=== PATIENT | female | born 1925 | race Caucasian/White ===

== ENCOUNTER 2016-11-18 23:20 | Inpatient (IN) | payer MEDICARE, OTHER ==
--- NOTE | ~2016-11-18 | CN ---
Consultation Report [facility] [address] [place]. [address] NAME: JYOTI QUICK : [birth year] STATUS : ADM IN [facility]#: [id number] AGE: 89 ADM/REG DATE : 11/18/16 MR#: [id number] REPORT SERV DATE: 11/20/16 DICTATED BY: PEPE LI DATE: 11/20/16 REPORT STATUS : Draft TRANSCRIBED BY: HENOK DATE: 11/20/16 DATE OF CONSULTATION: REASON FOR CONSULTATION: Jyoti Quick is an 89-year-old female, who is referred for followup of atrial fibrillation and hypertension. CVD PHYSICIAN: New to our group, Dr. Li. HISTORY OF PRESENT ILLNESS: Mrs. Jyoti Quick was transferred from [place] with obtundation. She is undergoing neurological evaluation, and working diagnosis is now UTI with sepsis. She is scheduled for lumbar puncture today for continuing evaluation of encephalopathy by Neurology. The patient is non-responsive, so review of systems and further history cannot be obtained. PAST MEDICAL HISTORY: Hypertension is the only listed disease. SOCIAL HISTORY: She is a group home resident. No further history is obtainable. FAMILY HISTORY: Unknown. PHYSICAL EXAMINATION: GENERAL: She currently is non-responsive. She is lying flat in bed with normal respiratory effort. CARDIAC: No significant murmur, rub, or gallops are heard. ABDOMEN: Soft. Bowel sounds are present. EXTREMITIES: Warm without edema. She has no petechiae. LABORATORY EVALUATION: Echocardiogram shows normal ejection fraction with mild LVH secondary to hypertension and no significant valvular heart disease. Troponin was mildly positive at 2.3. EKG shows atrial flutter. ASSESSMENT: At this time, she is n.p.o. and atrial fibrillation rate is out of control, on IV Cardizem which I will continue. I will defer decision for anticoagulation to Neurology. At the present time, not a candidate for intervention with a positive troponin, but we will follow clinically. ELFEGO/HENOK Pepe Li M.D. / [id number] Consultation Report [facility] [address] [place]. [address] NAME: JYOTI QUICK : [birth year] STATUS : ADM IN PAT#: [id number] AGE: 89 ADM/REG DATE : 11/18/16 MR#: [id number] REPORT SERV DATE: 11/20/16 DICTATED BY: PEPE LI DATE: 11/20/16 REPORT STATUS : Draft TRANSCRIBED BY: HENOK DATE: 11/20/16 CC: MD Jose Cowart Lisa
--- NOTE | ~2016-11-18 | CN ---
Consultation Report [facility] [address] [place]. [address] NAME: JYOTI QUICK : [birth year] STATUS : ADM IN PAT#: [id number] AGE: 89 ADM/REG DATE : 11/18/16 MR#: [id number] REPORT SERV DATE: 11/19/16 DICTATED BY: LAURIE ROSE DATE: 11/19/16 REPORT STATUS : Draft TRANSCRIBED BY: MODL DATE: 11/19/16 URGENT NEUROLOGICAL CONSULTATION DATE OF CONSULTATION: 11/19/2016 HISTORY OF PRESENT ILLNESS: This is an 89-year-old, white female, resident of the correction in [place] who was transferred to this facility from [facility] as per request of patient's family. The patient apparently had progressive decline in her mental status and generalized malaise and fever. The patient's son who visited the patient last Friday stating that he was able to communicate with her although she would not be very verbal. She recognized him and remember his name. The patient was able to interact with her son at that time, however, his son received a phone call from correction and was informed that the patient was getting unresponsive. She was taken to [facility]. At that time, she was noted to have a fever of 103. On admission to [facility], the patient's WBC count was 24,000, her hemoglobin was 16.6, hematocrit 52.1. Her blood sugar on arrival was 600. BUN was 53, creatinine 1.9. Her urinalysis showed 37 WBC, lactate was 2.5. The patient was treated with 2 g of Rocephin intravenously after transferred to this hospital. She was hydrated with normal saline, and CT scan of the brain was done. 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 The MRI of the brain which was obtained today showed findings compatible with multiple areas bilateral hemispheres of small infarcts, suggestive of shower of emboli. In addition, chronic extensive small-vessel ischemic changes and cortical atrophy were noted. PAST MEDICAL HISTORY: Significant history of a stroke approximately 10 years ago. The patient does have history of atrial flutter, however, has not been treated with anticoagulation secondary to increased risk of falling. In addition, the patient has history of dementia, she has been diagnosed with in the past few years. The patient has been residing in correction for the past two years. The patient's son who works in correction in the maintenance department was able to visit her frequently and had noted a definite change in her mental status starting last Friday. MEDICATIONS: The patient's current medications included diltiazem 180 mg p.o. b.i.d., glimepiride 4 mg p.o. daily, loratadine 10 mg daily, mirtazapine 30 mg at bedtime, Rocephin 1 g IV q.24 hours, citalopram 40 mg p.o. daily, pantoprazole 40 mg p.o. before breakfast, and multivitamin. ALLERGIES: NO KNOWN ALLERGIES. FAMILY HISTORY: Noncontributory. SOCIAL HISTORY: The patient is . Her recently was also placed in a correction for multiples strokes, however, as per patient's sons present at the patient's bedside, Consultation Report [address] [address] NAME: JYOTI QUICK : [birth year] STATUS : ADM IN [facility]#: [id number] AGE: 89 ADM/REG DATE : 11/18/16 MR#: [id number] REPORT SERV DATE: 11/19/16 DICTATED BY: LAURIE ROSE DATE: 11/19/16 REPORT STATUS : Draft TRANSCRIBED BY: HENOK DATE: 11/19/16 their father (patient's ) recovered although not able to speak very well, was able to function. PHYSICAL EXAMINATION: GENERAL: The patient is somnolent, aroused with difficulty when called by her son, responded to painful stimuli by moving all three extremities except for the left arm which appeared to have increased tone. VITAL SIGNS: Showed blood pressure of 139/100, pulse was 136, respirations 24, oxygen saturation 99, temperature was 98.9. HEAD AND NECK EXAMINATION: Showed head to be normocephalic. There was no evidence of trauma. Auscultation of the neck did not show any significant bruits. The patient was brought breathing through her mouth. Her respiratory rate was regular. The patient did not appear to have episodes of apnea and no evidence of Bala-Griffiths noted. EYE EXAM: Sclerae were not icteric. Conjunctivae were pink. Pupils were small, 2 mm reacted to light. Extraocular movements, the patient appeared to have slight gaze preference to the right. However, her eyes crossed midline when patient was called by her son. CARDIOVASCULAR: Auscultation of the chest showed irregularly irregular heart rate, possible atrial fibrillation. Her heart rate, tachycardia of approximately 140. LUNGS: Showed decreased breath sounds and crackles bilaterally at the bases. ABDOMEN: Appeared soft, nontender. No organomegaly. EXTREMITIES: Show no clubbing or cyanosis. There is no peripheral edema. Peripheral pulses were difficult to palpate. SKIN: The patient's skin was cold but there was no cyanosis. NEUROLOGICAL EXAMINATION: The patient was obtunded, appeared to respond only to painful stimuli by saying yes and no to the questions that sons posted, however, did not communicate or speak in sentences. The patient did not follow commands. Cranial nerve examination 2 through 12; visual barriga on confrontation were difficult to test secondary to patient's obtunded state. Eyes appeared to have slight gaze preference to the right, however, did cross midline when the patient was called on the left side. There was no dysconjugate gaze. The upward and downward gaze could not be tested. Pupils were 2 mm, reacted to light and difficult to test accommodation, response. No facial asymmetry was noted. Hearing appeared to be decreased diffusely. Tongue was midline. No atrophy or fibrillations were noted. The patient was mouth breathing. Gag reflex was elicitable. Sternocleidomastoid, trapezius muscle, and lower cranial nerves were difficult to test. Motor Exam: The patient's tone was much more increased in the left arm, appeared to have some cogwheel rigidity. The tone appeared to be slightly decreased in both legs and right arm. Deep tender reflexes were 1+/2 in upper extremities, 0/2 in lower extremities. Babinski sign was positive on the left. Sensory Exam: The patient withdrew to pain, as mentioned in three extremities except for left arm which appeared to have delayed response. Cerebellar exam and gait could not be tested. Consultation Report [facility] [address] [facility] [place]. [address] NAME: JYOTI QUICK : [birth year] STATUS : ADM IN [facility]#: [id number] AGE: 89 ADM/REG DATE : 11/18/16 MR#: [id number] REPORT SERV DATE: 11/19/16 DICTATED BY: CHRISTIANOLAURIE BALDOMERO DATE: 11/19/16 REPORT STATUS : Draft TRANSCRIBED BY: MODKasie DATE: 11/19/16 LABORATORY STUDIES: WBC count 28,100, hemoglobin 14.1, hematocrit 43.7, MCV 98, platelet count 244,000. Differential; absolute neutrophils increased to 26.4, procalcitonin 0.19. Sodium 153, potassium 3.9, chloride 124, carbon dioxide 23, lactate 1.4. BUN 42, creatinine 1.29, GFR 37. Magnesium 1.9. Calcium 8.4, glucose serum 111, albumin 2.3, total protein 5.3, phosphorus 1.7. SGPT 68, SGOT 51. B-natriuretic peptide 570.8, troponin 2.26. Urinalysis; WBC count 14, few bacteria, small amount of leukocytes. Troponin 2.26, repeat 1.8. CT of the chest and abdomen was done that showed atelectases at the left lung base and trace pericardial fluid. No pneumonic appearing infiltrate in the chest, 6 mm left lower lobe nodule is almost certainly benign, no acute finding identified in the abdomen and pelvis, renal calculi including staghorn left renal calculus with smallest size on the left kidney. No current hydronephrosis, bilateral benign adrenal adenomas. The benign nature is confirmed with a low Hounsfield unit measurements on noncontrast CT. Fracture of the superior endplate L5 possibly subacute. MRI of the brain on diffusion weighted imaging, showed multiple small foci of restricted diffusion in multiple areas, left cerebellar hemisphere, bilateral frontal lobe, right caudate nucleus, bilateral parietal lobes, left occipital lobe, cerebellar hemisphere. The gradient sequence demonstrated multiple areas of old blood products. Some blood products were seen in the left occipital area of ischemia. Extensive chronic small vessel disease was also noted with old lacunar infarcts bilaterally in cerebellar hemisphere, moderate amount of atrophy and ventriculomegaly was also seen. IMPRESSION: Recent changes in mental status, encephalopathy most likely a combination of infectious and possibly vasculitic problems. Although, the patient's routine echo shows no evidence of vegetations, I would rule out bacterial endocarditis as a source of multiple emboli. It appears that the patient has had an ongoing process of embolization which started more than last Friday. Recurrent atrial fibrillation and flutter are the most common causes of recurrent embolic strokes. The patient is not a candidate for anti- coagulation at this point. I would recommend to hold off using heparin until lumbar puncture is obtained to rule out an infectious cause of multiple emboli. The patient's family wishes, her son's wished to be aggressive in finding out the cause of the patient's recent changes in mental status. The patient does have history of previous strokes and history of dementia which was explained to the patient's sons. At present, the patient is DNR, however, they requested that aggressive workup be done to find out if there are treatable causes of the encephalopathy. I would recommend to obtain carotid ultrasound study. Transesophageal echo would be not tolerated by the patient in her present state. I recommend to obtain an EEG. Laboratory studies should include sedimentation rate, C- reactive protein, PAN, blood cultures x3 at different sites, lumbar puncture to rule out infectious causes. That will be done after the patient's anticoagulation is withheld for at least 24 hours, we will schedule the patient. We will recommend to monitor and maintain blood sugar within the normal range if possible. Additional problems include hypernatremia, elevated BUN and creatinine suggestive of dehydration, poorly controlled diabetes mellitus, hyperglycemia, past history of old CVA. The patient's CT scan of the head showed Consultation Report [address] [address] NAME: JYOTI QUICK : [birth year] STATUS : ADM IN [facility]#: [id number] AGE: 89 ADM/REG DATE : 11/18/16 MR#: [id number] REPORT SERV DATE: 11/19/16 DICTATED BY: LAURIE ROSE DATE: 11/19/16 REPORT STATUS : Draft TRANSCRIBED BY: MODL DATE: 11/19/16 significant atrophy with dilated ventricles and multiple strokes suggestive of underlying dementia. I would recommend to obtain lumbar puncture to rule out meningitis, bacterial viral. Thank you for allowing us to participate in this patient's care. SARAI/HENOK Laurie Rose MD / [id number] CC: IwayMD Mer Molina
--- NOTE | ~2016-11-18 | EEG ---
Electroencephalogram [facility] [place] [address] [place]. [address] NAME: JYOTI QUICK : [birth year] STATUS : ADM IN PAT#: [id number] AGE: 89 ADM/REG DATE : 11/18/16 MR#: [id number] REPORT SERV DATE: 11/21/16 DICTATED BY: LAURIE ROSE DATE: 11/21/16 REPORT STATUS : Draft TRANSCRIBED BY: MODL DATE: 11/21/16 ELECTROENCEPHALOGRAPHY REPORT REQUESTING PHYSICIAN: Eileen Christine MD INTERPRETING PHYSICIAN: Laurie Rose M.D.-Neurology. AGE: 89. REASON FOR EEG: Encephalopathy. Poor responsiveness. Multiple strokes. 23 surface electrodes, 10-20 international placement was used. Photic stimulation was performed. Video monitoring was utilized. The background activity consisted of poorly organized, moderate voltage 6 to 7 cycles per second located in the posterior head regions. This activity did appear to attenuate with the eye opening maneuvers. Photic stimulation did not produce a driving response. Intermittent slower frequencies in the theta range were seen to appear bilaterally synchronous manner, occasionally more prominent on the right than on the left. The location of the discharges was in the central temporal regions. No paroxysmal or epileptiform activity was seen during this study. The patient's patient care representative showed atrial fibrillation, heart rate of approximately 90 beats per minute. IMPRESSION: ABNORMAL EEG CHARACTERIZED BY PRESENCE OF DIFFUSE SLOWING OF CEREBRAL ACTIVITY. MILD ASYMMETRY WAS NOTED TO BE OBSERVED. SLOWER DISCHARGES SEEN IN THE TEMPORAL REGIONS, LEFT GREATER THAN RIGHT. THIS EEG MAY SUGGEST PRESENCE OF DIFFUSE CEREBRAL DYSFUNCTION. CLINICAL CORRELATION IS RECOMMENDED. SARAI/HENOK Laurie Rose MD / [id number] CC: MD RASHEED Cowart
--- NOTE | ~2016-11-18 | HP ---
History And Physical [place] [id number] [facility] [place]. [address] NAME: JYOTI QUICK : [birth year] STATUS : ADM IN [facility]#: [id number] AGE: 89 ADM/REG DATE : 11/18/16 MR#: [id number] REPORT SERV DATE: 11/19/16 DICTATED BY: ABUNDIO GRANT DATE: 11/19/16 REPORT STATUS : Draft TRANSCRIBED BY: MODL DATE: 11/19/16 DATE OF ADMISSION: 11/18/2016 CHIEF COMPLAINT: This is a patient I had accepted in transfer from [facility] due to the patient's family's strong request. HISTORY OF PRESENT ILLNESS: This is an 89-year-old female who is a resident at a senior living in [place], had been feeling poorly since Friday in the morning. Her son who visited her said she was slightly disoriented, but still able to recognize and communicate with him. She was not her usual self and was not able to move around on her wheelchair as she used to. He did not go there Friday, but Friday, the facility had called him saying that she was unresponsive. When he got there, she was completely out of it, could not be aroused; however, she had no respiratory difficulty. She also had a fever of 103 degrees or more there, and the patient was then subsequently taken to the ER at [facility]. I spoke to Dr. Muñoz there before I accepted the transfer. According to Dr. Muñoz, she had presented with a fever of 100.4. She was unresponsive and had a white blood cell count of 24,000. Her hemoglobin and hematocrit were 16.6 and 52.1. She had a sodium of 146 and a potassium of 4.8. Her blood sugar upon arrival was 600. BUN and creatinine were 53 and 1.9. Her urinalysis showed 37 wbc's. Her lactate initially upon presentation was 2.4, a repeat was 2.5, and at the time he was talking to me or just prior to transfer, it had come down to 1.5. She had received a liter of normal saline and 2 g of Rocephin intravenously. CT of the brain was not done. Chest x-ray done there was unremarkable according to Dr. Muñoz. At the time of my evaluation here, she was quite unresponsive, could not be aroused, but responds to painful sternal rub. No other review of systems or history was obtained from the patient at this time. PAST MEDICAL HISTORY: Significant for history of essential hypertension. SOCIAL HISTORY: Social history was obtained from the son who states she had not smoked, does not drink, or use recreational drugs. FAMILY HISTORY: Noncontributory. MEDICATIONS AT HOME: Reviewed by me and addressed by me in the chart. REVIEW OF SYSTEMS: As in history of present illness. Most systems were unobtainable due to the patient's current encephalopathy. PHYSICAL EXAMINATION: GENERAL: This is an 89-year-old female, not in any acute distress, but she was not alert, not awake or oriented. She was quite unresponsive and does not communicate at this point. HEENT: Her pupils are equal and reacting to light and accommodating. History And Physical [address] [address] NAME: JYOTI QUICK : [birth year] STATUS : ADM IN [facility]#: [id number] AGE: 89 ADM/REG DATE : 11/18/16 MR#: [id number] REPORT SERV DATE: 11/19/16 DICTATED BY: ABUNDIO GRANT DATE: 11/19/16 REPORT STATUS : Draft TRANSCRIBED BY: HENOK DATE: 11/19/16 NECK: Supple with no jugular venous distention, lymphadenopathy, or thyromegaly. LUNGS: Auscultation of her lungs showed moderate air entry bilaterally with no wheezes, rubs, or crackles. HEART: Heart sounds were regular with no murmurs, rubs, or gallops appreciated. ABDOMEN: Soft, nontender. Bowel sounds are present. EXTREMITIES: Showed no cyanosis, clubbing, or edema. NEUROLOGIC: Grossly intact, although she is unresponsive at this point. VITAL SIGNS: Her vitals today upon arrival here showed a temperature of 98.4, pulse 87, respirations 26 a minute, and blood pressure was 135/77. Oxygen saturations were 93% on 2 L via nasal cannula. DIAGNOSTICS: Laboratory data and other data, which accompanied the patient, were reviewed by me. IMPRESSION: 1. Urinary tract infection. 2. Sepsis. 3. Altered mental status and metabolic encephalopathy. 4. Essential hypertension. PLAN: We will admit Ms Quick to the Hospitalist Service to a telemetry bed. We will obtain cultures, start her on empiric IV antibiotics, and cover her for healthcare- associated infections as she comes from a senior living. We will continue aggressive volume resuscitation. We will give an additional 1 to 2 L of normal saline as bolus and then re- evaluate her. We will then switch to maintenance therapy as well. For her blood sugar of 600, we will start her on insulin infusion per protocol with hourly blood sugar checks. We will also repeat chemistry and CBC in the morning and replace electrolytes as needed. We will also check her TSH and cortisol as well. We will go ahead and get a CT of the brain to rule out any bleed or head trauma. At this point, I believe it could be just metabolic encephalopathy from the sepsis. I have discussed the above plans with the patient and her son. His questions were answered, and he is agreeable to the above recommendations. I again had discussions with him regarding code status and he reiterated that he wants his mother DNR per her own wishes. I will sign a DNR form and place in the chart. Hospitalist Service will be following her during her stay here. /HENOK Abundio Grant M.D. / [id number] CC: Eileen Christine MD
--- NOTE | ~2016-11-18 | CN ---
Consultation Report [facility] [address] [place]. [address] NAME: JYOTI QUICK : [birth year] STATUS : ADM IN [facility]#: [id number] AGE: 89 ADM/REG DATE : 11/18/16 MR#: [id number] REPORT SERV DATE: 11/19/16 DICTATED BY: MICKEY HUTCHINSON DATE: 11/19/16 REPORT STATUS : Draft TRANSCRIBED BY: MODL DATE: 11/19/16 INFECTIOUS DISEASE CONSULT DATE OF CONSULTATION: REASON FOR CONSULT: Sepsis. HISTORY OF PRESENT ILLNESS: An 89-year-old white lady with history of hypertension, diabetes, kidney stones, dementia, cholecystectomy, hysterectomy, and arrhythmia who was transferred from [facility] emergency room at family request because of fever and altered mental status. The patient is unresponsive and cannot provide information. I reviewed the medical records from [facility] and from [facility] and I discussed with the patient's son. He tells me that she has been in a group home for 1-1/2 years because she was unable to take care of herself. Her had a stroke recently and he was hospitalized with and released home to hospice, but he improved clinically and he lives with one of the sons. The patient might have had some decline this year. She used to be able to feed herself. She appears to be in a [facility] chair now. In mid October, she was hospitalized at [facility] for few days for urinary tract infection. She also received antibiotics at the group home for the same. The patient's son does not know if any cause for urinary tract infection was found. Recent records from the group home showed that on the 11/15/2015 she had a white blood cell count of 15 and the urine culture grew mixture of Proteus and Klebsiella. The Proteus was resistant to Bactrim, gentamicin, tobramycin, levofloxacin, and nitrofurantoin. The Klebsiella was intermediate to nitrofurantoin. Interestingly, the patient's hemoglobin was quite high for her age at 15. It appears that the patient received ampicillin recently and then she was started on cefuroxime plus she had a dose of ertapenem yesterday. She has also been getting Lasix. Four days ago, when the son visited, she had some grimacing like she had the sore throat. She maybe had some sneezing. She was prescribed Claritin. She complained of her mouth being irritative. He did not see her on Friday, three days ago, but yesterday, he was told she was unresponsive and had a high fever. She has not been eating and he thinks she had no vomiting, no diarrhea, no constipation, no skin lesions, and no choking episodes. She was taken to the emergency room at [facility] where her temperature was 100.4. LABORATORY WORK: Lab work showed WBC of 24, hemoglobin even higher at 16. Sodium high at 146, glucose 600, creatinine high at 1.9. Lactic acid 2.4. ABG showed pH of 7.3, pCO2 of 47, pO2 of 84, bicarb 23, saturation 96%. Urinalysis with 37 white blood cells and very high glucose. Family requested her to be transferred here which happened last night. Here, she has been unresponsive. She has not had any fever, the highest being 99.8. Blood pressure has not been low. She has been getting IV fluids. Antibiotic carrera, she received Rocephin at [facility] and then that was continued here. She then today was given also Consultation Report [facility] [address] [place]. [address] NAME: JYOTI QUICK : [birth year] STATUS : ADM IN [facility]#: [id number] AGE: 89 ADM/REG DATE : 11/18/16 MR#: [id number] REPORT SERV DATE: 11/19/16 DICTATED BY: MICKEY HUTCHINSON DATE: 11/19/16 REPORT STATUS : Draft TRANSCRIBED BY: HENOK DATE: 11/19/16 acyclovir and vancomycin. An MRI without contrast showed multiple small infarcts in both cerebral lobes in the left cerebellum ,the largest being 1 cm. There is also atrophy and chronic ischemic changes an old lacunar infarct. CT scan of the chest, abdomen, and pelvis without contrast was done. She does have renal stones including left a staghorn calculus, the left kidney smaller than the right. There is no hydronephrosis. There is also a L5 endplate fracture, possibly "subacute." The echocardiogram was of limited visualization, but the ejection fraction was 60% and there is no mention of vegetations or valvular insufficiency. LAB WORK: Here shows a WBC of 28, hemoglobin 14, segments 89%, bands 5%. Lactic acid 1.4. BNP 570. Procalcitonin 0.1. Sodium high at 153, potassium low at 2.9, CO2 of 23, creatinine 1.3 which has improved. ALT and AST mildly elevated at 68 and 61, but bilirubin 0.3. PAST MEDICAL HISTORY: As I mentioned above. SOCIAL HISTORY: As I mentioned above. ALLERGIES: NONE. MEDICATIONS ON ADMISSION: As I mentioned above plus DuoNeb inhaler just recently started, aspirin, Ceftin, Celexa, diltiazem, Lasix, glimepiride, Claritin, recently started milk of magnesia as needed, Remeron at bedtime, multivitamin with minerals, omeprazole, potassium, Florastor, and tramadol as needed. PHYSICAL EXAMINATION: HEENT: She would just briefly open her eyes. When I examined, her oral mucosa is dry. Sclerae are white. GENERAL: She has she has a new right arm IV. HEART: Irregular rhythm. Maybe a soft murmur at the upper sternal border. ABDOMEN: Compressible, soft. No grimacing with palpation. LUNGS: Poor inspiratory effort. No wheezes, rhonchi, or rales. SKIN: Without obvious rash. MSK: Joints without obvious swelling. No pain with range of motion that I can elicit. ASSESSMENT AND PLAN: 1. Leukocytosis without any significant bands. 2. Fever at the outside facility, but not here. 3. Altered mental status and multiple bilateral small acute infarct by MRI. 4. Atrial flutter or atrial fibrillation with rapid ventricular rate. 5. Elevated troponin. 6. Hyperglycemia. The question for ID is whether she has a septic/infection episode. She has been on a Consultation Report [address] [address] NAME: JYOTI QUICK : [birth year] STATUS : ADM IN [facility]#: [id number] AGE: 89 ADM/REG DATE : 11/18/16 MR#: [id number] REPORT SERV DATE: 11/19/16 DICTATED BY: MICKEY HUTCHINSON DATE: 11/19/16 REPORT STATUS : Draft TRANSCRIBED BY: HENOK DATE: 11/19/16 multitude of antibiotics, as I mentioned, ampicillin, then cefuroxime, then one dose of ertapenem, then Rocephin. Currently, she is on Rocephin, vancomycin, and IV acyclovir. The urine culture done on the first, as I mentioned, with 2 gram negative. Blood and urine cultures done yesterday at [facility], I was told by the lab are not growing any organisms. Procalcitonin is not elevated. The only finding beside the altered mental status is that she has a left staghorn calculus, but no obvious obstruction. Obviously, this could be a nidus for bacteria in the urinary tract. Cannot rule out encephalitis, although that it is not a common finding. The patient is a group home resident, does not spend time outdoors. The MRI was done without contrast. There was no comment about the meninges. She is seen by Neurology. Continue empiric antibiotics. Change the Rocephin to cefepime for now. I reviewed the medical records. As I mentioned, I discussed with the son the nurse and Dr. Christine. TIME SPENT: An hour and 45 minutes. PC/MODL Mickey Hutchinson M.D. / [id number] CC: MD MACRINA Cowart LISA
--- NOTE | ~2016-11-18 | DS ---
Discharge Summary [facility] [address] [place]. [address] NAME: JYOTI QUICK : [birth year] STATUS : DIS IN PAT#: [id number] AGE: 89 ADM/REG DATE : 11/18/16 MR#: [id number] REPORT SERV DATE: 12/03/16 DICTATED BY: DATE: REPORT STATUS : Draft TRANSCRIBED BY: MODL DATE: 12/02/16 ADMISSION DATE: 11/18/2016 DISCHARGE DATE: 12/02/2016 DISCHARGE DIAGNOSES: 1. Multiple embolic cerebrovascular accidents. 2. Encephalopathy. 3. Hypoxia. 4. Leukocytosis. 5. Atrial fibrillation with RVR. 6. Type 2 diabetes. 7. Alternative nutrition source requirement. CONSULTATIONS: 1. Dr. Laurie Rose, Neurology, 11/19/2016. 2. Dr. Mickey Rivera, Infectious Disease, 11/19/2016. 3. Dr. Pepe Li, Cardiology, 11/20/2016. 4. [facility]. PERTINENT TESTS AND PROCEDURES: 1. CT of brain without contrast, 11/19/2016. Impression:. a. Minimal left basilar atelectasis and trace pericardial fluid. No pneumonic appearing infiltrate of the chest. b. 6 mm left lower lobe nodule, almost certainly benign. c. No acute finding identified in the abdomen or pelvis. Renal calculi including staghorn left renal calculus with smaller size of left kidney. No current hydronephrosis. d. Bilateral benign adrenal adenomas. e. Fracture of superior endplate of L5, age unknown, possibly subacute. 2. Echocardiogram, 11/19/2016. Summary: Left ventricle function appears intact. Ejection fraction in high 60s. Mild left ventricular hypertrophy. Right ventricle function intact. Trace mitral and mild tricuspid regurgitation. 3. MRIP/MRI brain without contrast, 11/19/2016. Impression:. a. Multiple small acute infarcts scattered bilaterally compatible with a shower of emboli. b. Extensive chronic small vessel ischemic changes and cortical volume loss. 4. Spinal puncture, 11/20/2016, 12 mL of CSF fluid was admitted. Diagnostic workup unremarkable. 5. Renal ultrasound, 11/21/2016. Impression: Normal right kidney, left renal stones, no hydronephrosis on either side. 6. Chest x-ray, 11/21/2016. Impression: Chronic obstructive pulmonary disease without focal airspace consolidation. 7. CT of brain, 11/22/2016. Impression: Severe atrophy with extensive chronic white matter ischemic change. Several acute infarcts involving cerebellar hemispheres and cerebral hemispheres, no acute hemorrhage or subdural fluid collections. 8. KUB, 11/25/2016. Impression: Dobbhoff tube in place with a kink at the distal 6 cm of Discharge Summary [facility] [address] [place]. [address] NAME: JYOTI QUICK : [birth year] STATUS : DIS IN PAT#: [id number] AGE: 89 ADM/REG DATE : 11/18/16 MR#: [id number] REPORT SERV DATE: 12/03/16 DICTATED BY: DATE: REPORT STATUS : Draft TRANSCRIBED BY: MODL DATE: 12/02/16 the tube. HOSPITAL COURSE: Please refer to history and physical dated 11/19/[address] Abundio Lara for complete details of patient's initial presentation upon admission and health history. Please also refer to consultations dated 11/19/2016 and 11/20/2016 provided by Neurology, Infectious Disease, and Cardiology. Please also refer to interim summary dated 11/26/2016 covering dates of service between 11/19/2016 and 11/26/[address] Christine. Briefly, the patient is an 89-year-old female with a past medical history significant for remote CVA, type 2 diabetes, and hypertension who presented to the emergency department in a transfer from [facility] on 11/18/2016. The patient is a detention care resident at a long term in [place], [place]. On 11/18/2016, the patient was found unresponsive and febrile with a reported temperature of 103 degrees. The patient was subsequently taken to the emergency department at [facility], and due to patient's strong family request, was transferred to [facility] for further evaluation and treatment. Initial evaluation was concerning for sepsis with potential sources of infection to include UTI. The patient's white blood cell count was elevated to 28,000, and the patient presented with altered mental status. The patient was placed on empiric IV antibiotics to cover for healthcare-associated infections, and aggressive volume resuscitation was initiated. Infectious Disease was consulted for recommendation of antibiotic therapy in the setting of sepsis with no clear source of infection. Neurology was also consulted secondary to MRI of the brain showing multiple small foci of restricted diffusion and multiple areas. Differential diagnoses at that time included combination of infectious and possible vasculitis issues. Echocardiogram ruled out evidence of agitation and ID was also consulted regarding ruling out bacterial endocarditis as a source of multiple emboli. Despite multiple diagnostic tests, no clear sources of infection were ever identified. The patient also developed acute onset of atrial fibrillation during this admission. Cardizem drip was initiated, and the patient was transitioned to Cardizem p.o. The patient was not a candidate for anticoagulation secondary to concern for her hemorrhagic conversion in the setting of multiple embolic CVAs. During this admission, patient's health condition has continued to decline significantly daily. The patient is lethargic with no clinical signs of neurologic improvement. Palliative Care was consulted on 11/27/2016 for recommendations regarding future care of plan. Palliative Care met with the patient's son to discuss the patient's continued decline despite aggressive antibiotic treatment. Family expressed they did not want a permanent feeding tube placed as a source of alternative nutrition and requested that the patient be transitioned to hospice care for comfort and supportive measures as she transition to terminal phase of disease process. Discharge Summary [facility] [address] [place]. [address] NAME: JYOTI QUICK : [birth year] STATUS : DIS IN PAT#: [id number] AGE: 89 ADM/REG DATE : 11/18/16 MR#: [id number] REPORT SERV DATE: 12/03/16 DICTATED BY: DATE: REPORT STATUS : Draft TRANSCRIBED BY: MODL DATE: 12/02/16 1. Multiple embolic CVAs, acute infectious etiology was ruled out. The patient did have acute onset of atrial fibrillation with RVR during this admission. It is known the recurrent atrial fibrillation and flutter are the most common causes of recurrent embolic stroke. However, patient was not deemed a candidate for anticoagulation secondary to concern for hemorrhagic conversion. The patient's neurologic status has continued to decline throughout this admission with no clinical indication of improvement. The patient will transfer to general inpatient care under [facility] today and then return to long-term care facility to resume hospice care once bed is available. 2. Atrial fibrillation with RVR. This was first noted during this admission. The patient currently has a Dobbhoff tube for medication administration. After Cardizem drip was discontinued, the patient was placed on metoprolol 25 mg every 12 hours. The patient's heart rate increased today ranging between 120 and 150. Beta-mayra has been increased to every eight hours per Dobbhoff tube, to be held for a systolic blood pressure less than 110. The patient is not on telemetry secondary to general inpatient admission under the care of hospice. No chronic anticoagulation secondary to recent multiple embolic CVAs. 3. Hypoxia, acute. This is most likely multifactorial to include decline in neurological status. Supplemental O2 to maintain saturation greater or equal to 92%. 4. Encephalopathy. This is multifactorial to include history of dementia in the setting of multiple embolic CVAs. 5. Leukocytosis. No clear etiology for source of infection was ever obtained during this admission. White blood count slowly trending down. The patient has been off antibiotic therapy for several days. No additional interventions will be initiated as patient is transferring to hospice. 6. Type 2 diabetes. The patient's blood glucose is stable. Continue Levemir and sliding scale insulin every six hours secondary to n.p.o. status. DISCHARGE CONDITION: 1. At the time of discharge, the patient is hemodynamically stable. However, condition continues to decline. 2. Discharge diet. At this time, the patient is lethargic and is unable to consume oral intake. Dobbhoff tube with tube feedings will remain in place to be managed under the care of hospice. DISCHARGE MEDICATIONS: To be reconciled by hospice admitting physician. DISCHARGE INSTRUCTIONS: The patient was transferred to the care of [facility] general inpatient admission. All further plans of care will be determined per their attending physician. DICTATED BY: KEY Tillman [facility]/HENOK Discharge Summary [address] [address] NAME: JYOTI QUICK : [birth year] STATUS : DIS IN PAT#: [id number] AGE: 89 ADM/REG DATE : 11/18/16 MR#: [id number] REPORT SERV DATE: 12/03/16 DICTATED BY: DATE: REPORT STATUS : Draft TRANSCRIBED BY: HENOK DATE: 12/02/16 KEY Tillman / [id number] CC: MD Mer Robbins II
--- NOTE | ~2016-11-18 | IDS ---
Interim Discharge Summary [facility] [address] [place]. [address] NAME: JYOTI QUICK : [birth year] STATUS : ADM IN [facility]#: [id number] AGE: 89 ADM/REG DATE : 11/18/16 MR#: [id number] REPORT SERV DATE: 11/26/16 DICTATED BY: EILEEN STEWARD DATE: 11/25/16 REPORT STATUS : Draft TRANSCRIBED BY: MODKasie DATE: 11/25/16 ADMISSION DATE: 11/18/2016 DISCHARGE DATE: DISCHARGE DATE: Pending. CONSULTATIONS: 1. Neurology. 2. Infectious Disease. 3. Cardiology (signed off). CURRENT DIAGNOSES: 1. Acute multiple embolic cerebrovascular accident. 2. Acute encephalopathy. 3. Sepsis. 4. Atrial fibrillation. 5. Hypertension. 6. Diabetes mellitus type 2. 7. Hypertension. 8. Left renal staghorn calculus. 9. Dobbhoff tube feeding. IMAGING: MRI of the brain, impression: 1. Multiple small acute infarcts scattered bilaterally compatible with a shower of emboli. 2. Extensive chronic small vessel ischemic changes and cortical volume loss. HOSPITAL COURSE: History of present illness, this is an 89-year-old female, who was a resident at group home in [place], who was noted to have poor oral intake, was noted to be confused and disoriented, and was subsequently transferred to [facility]. During evaluation at [facility], was found to be unresponsive, also noted to have a fever of 103. The patient was transferred from [facility] to [facility] per family request. On arrival to [facility], the patient was noted to be unresponsive. An assessment of sepsis secondary to urinary tract infection with acute metabolic encephalopathy was made. The patient was admitted to the Hospitalist Service. 1. Acute multiple infarcts. The patient subsequently underwent a CT scan of the brain that shows no acute infarct; however, an MRI shows acute multiple infarcts consistent with embolic shower. Neurology was consulted. The patient was outside tPA window, as the patient was noted to have been unresponsive and confused several days prior to presentation to the hospital. Neurology has been on board throughout the course of this admission so far. The patient is able to open eyes spontaneously, but only says a few words. Not tolerating p.o. Remained drowsy. An extensive meeting was had with the patient's family. The patient's family is contemplating hospice versus SNF placement at this time. Also, the patient's family is requesting for possible PEG tube placement at this time. I suspect that at the end of this hospital course, the patient will likely go to group home with PEG tube, as the family may not be open to the idea of inpatient hospice. Interim Discharge Summary [address] [address] NAME: JYOTI QUICK : [birth year] STATUS : ADM IN PAT#: [id number] AGE: 89 ADM/REG DATE : 11/18/16 MR#: [id number] REPORT SERV DATE: 11/26/16 DICTATED BY: EILEEN STEWARD DATE: 11/25/16 REPORT STATUS : Draft TRANSCRIBED BY: HENOK DATE: 11/25/16 2. Sepsis. The patient's white blood cell was noted to be 21,000. No definitive source of infection has been identified, as the patient was on multiple antibiotics for UTI "prior to admission." ID is currently on board. There was initial thought that the patient may have possible meningoencephalitis. Was started on vancomycin, cefepime, and acyclovir. However, the patient underwent lumbar puncture that was not consistent with meningitis, hence acyclovir was discontinued. The patient is currently only on IV cefepime at this time. The patient's white cell count trended down to 19,000 and remained stable. She has remained afebrile throughout the course of this admission. 3. Atrial fibrillation (new diagnosis during this admission). The patient was placed on Cardizem drip. The patient's rate became controlled. Was subsequently transitioned to p.o. Cardizem and rate has remained controlled. The patient was not anticoagulated during this admission due to concerns for possible hemorrhagic conversion of this acute CVA. 4. Diabetes mellitus. The patient's glucose is being monitored by subcu insulin. 5. Left staghorn calculus noted on renal ultrasound. No evidence of hydronephrosis. The patient's creatinine remained stable. DISPOSITION: Likely SNF versus hospice. Family still contemplating on the final decision. PROGNOSIS: Guarded. CONDITION: Critical. IOO/MODL Eileen Steward MD / [id number] CC: MD RASHEED Cowart
[2016-11-18] MEDS ORDERED: ASAB PO (23:57)
[2016-11-18] MEDS ORDERED: CELEXA40 MG PO (23:59)
[2016-11-19] MEDS ORDERED: PRILO PO
[2016-11-19] MEDS ORDERED: REMERON30 MG PO
[2016-11-19] MEDS ORDERED: AMARYL4 PO
[2016-11-19] MEDS ORDERED: MICRO-K10 MEQ PO (00:01)
[2016-11-19] MEDS ORDERED: THERA M PLUS PO (00:02)
[2016-11-19] MEDS ORDERED: TIAZA1 PO (00:03)
[2016-11-19] MEDS ORDERED: LIQUID TEARS OPH (00:04)
[2016-11-19] MEDS ORDERED: T PO (00:05)
[2016-11-19] MEDS ORDERED: L20 PO (00:06)
[2016-11-19] MEDS ORDERED: ULTRAM50 PO (00:07)
[2016-11-19] MEDS ORDERED: MOMUD PO (00:08)
[2016-11-19] MEDS ORDERED: CLARIT10 PO (00:10)
[2016-11-19] MEDS ORDERED: CEFT5 PO (00:11)
[2016-11-19] MEDS ORDERED: FLORASTOR250 MG PO (00:12)
[2016-11-19] MEDS ORDERED: DUONEB INH (00:13)
[2016-11-19] MEDS ORDERED: ALBUTEROL0.083 % INH (00:15)
[2016-11-19 06:39] LABS: HEMATOCRIT 43.7 % (36.0-48.0); HEMOGLOBIN 14.1 g/dL (12.0-16.0); MEAN CORPUS HGB CONC 32.3 g/dL (32.0-36.0); MEAN CORPUSCULAR HEMOGLOB 31.6 pg (26.0-34.0); MEAN PLATELET VOLUME 10.5 fL (9.2-13.0); PLATELET COUNT 244 10/3/uL (150-400); RBC DISTRIBUTION WIDTH 14.3 % (12.0-16.0); RED CELL COUNT 4.46 10/6/uL (4.0-5.6)
[2016-11-19 06:40] LABS: MANUAL DIFF YES %; WHITE BLOOD CELLS 28.1 10/3/uL (4.5-10.5)
[2016-11-19 06:56] LABS: LACTATE 1.4 MMOL/L (0.3-2.4)
[2016-11-19 06:59] LABS: A/G RATIO 0.8 (0.7-1.9); ALBUMIN 2.3 G/DL (3.5-5.0); ALKALINE PHOSPHATASE 68 U/L (45-117); BUN (BLOOD UREA NITROGEN) 42 MG/DL (6-23); CALCIUM, SERUM 8.4 MG/DL (8.5-10.4); CHLORIDE, SERUM 124 MMOL/L (96-112); CO2 (CARBON DIOXIDE) 23 MMOL/L (24-34); CREATININE 1.29 MG/DL (0.55-1.02); GFR AFRICAN AMERICAN 43 ML/MIN (>=60); GFR NON AFRICAN AMERICAN 37 ML/MIN (>=60); GLUCOSE, SERUM 111 MG/DL (60-99); PHOSPHORUS, SERUM 1.7 MG/DL (2.5-4.5); SGOT(AST) 61 U/L (5-40); SGPT(ALT) 68 U/L (5-65); SODIUM, SERUM 153 MMOL/L (135-148); TOTAL BILIRUBIN 0.3 MG/DL (0-1.2); TOTAL PROTEIN 5.3 G/DL (6.0-8.5); ULTRASENSITIVE TSH 0.204 MCIU/ML (0.358-3.740)
[2016-11-19 07:00] LABS: POTASSIUM, SERUM 2.9 MMOL/L (3.5-5.3)
[2016-11-19 07:12] LABS: BAND NEUTROPHILS 5 %; LYMPHOCYTES 3 %; LYMPHOCYTES ABSOLUTE (CALC) 0.84 10/3/uL (0.67-4.30); MONOCYTES 3 %; MONOCYTES ABSOLUTE (CALC) 0.84 10/3/uL (0.21-1.20); NEUTROPHILS ABSOLUTE (CALC) 26.41 10/3/uL (2.02-8.40); PLATELET ESTIMATE ADQ (ADEQUATE); SEGMENTED NEUTROPHIL (0) 89 %; TOTAL NUCLEATED CELLS 100
[2016-11-19 07:13] LABS: RBC MORPHOLOGY NORM (NORMAL)
[2016-11-19 07:45] LABS: PROCALCITONIN 0.19 ng/mL (<0.5)
[2016-11-19 09:32] LABS: ASCORBIC ACID (UR NOT ORDER) NEG (NEG); BILIRUBIN, URINE NEGATIVE (NEG); KETONE, URINE NEGATIVE (NEG); LEUKOCYTE ESTERASE(NOT OR SMALL (NEG); WBC (NOT ORDERED) (RFLEX) 14 (0-5)
[2016-11-19 10:56] LABS: FREE T4 1.13 NG/DL (0.76-1.46); TROPONIN I 2.26 NG/ML (<0.05); ULTRASENSITIVE TSH 0.157 MCIU/ML (0.358-3.740)
[2016-11-19 19:36] LABS: CALCIUM, SERUM 8.6 MG/DL (8.5-10.4); CHLORIDE, SERUM 121 MMOL/L (96-112); CO2 (CARBON DIOXIDE) 20 MMOL/L (24-34); CREATININE 1.05 MG/DL (0.55-1.02); GFR AFRICAN AMERICAN 55 ML/MIN (>=60); GFR NON AFRICAN AMERICAN 47 ML/MIN (>=60); PHOSPHORUS, SERUM 2.1 MG/DL (2.5-4.5); SODIUM, SERUM 148 MMOL/L (135-148)
[2016-11-19 19:38] LABS: BUN (BLOOD UREA NITROGEN) 32 MG/DL (6-23); GLUCOSE, SERUM 143 MG/DL (60-99); POTASSIUM, SERUM 3.6 MMOL/L (3.5-5.3)
[2016-11-19 21:18] LABS: HEMATOCRIT 43.4 % (36.0-48.0); HEMOGLOBIN 14.2 g/dL (12.0-16.0); MEAN CORPUS HGB CONC 32.7 g/dL (32.0-36.0); MEAN CORPUSCULAR HEMOGLOB 31.8 pg (26.0-34.0); MEAN CORPUSCULAR VOLUME 97.1 fL (80-100); MEAN PLATELET VOLUME 10.7 fL (9.2-13.0); PLATELET COUNT 218 10/3/uL (150-400); RBC DISTRIBUTION WIDTH 14.2 % (12.0-16.0); RED CELL COUNT 4.47 10/6/uL (4.0-5.6)
[2016-11-19 21:21] LABS: MANUAL DIFF YES %; WHITE BLOOD CELLS 30.6 10/3/uL (4.5-10.5)
[2016-11-19 21:44] LABS: BAND NEUTROPHILS 1 %; LYMPHOCYTES 3 %; LYMPHOCYTES ABSOLUTE (CALC) 0.92 10/3/uL (0.67-4.30); MONOCYTES 2 %; MONOCYTES ABSOLUTE (CALC) 0.61 10/3/uL (0.21-1.20); NEUTROPHILS ABSOLUTE (CALC) 29.07 10/3/uL (2.02-8.40); PLATELET ESTIMATE ADQ (ADEQUATE); RBC MORPHOLOGY NORM (NORMAL); SEGMENTED NEUTROPHIL (0) 94 %; TOTAL NUCLEATED CELLS 100
[2016-11-19 22:27] LABS: INFLUENZA A SCREEN NEGATIVE (NEGATIVE); INFLUENZA B SCREEN NEGATIVE (NEGATIVE)
[2016-11-20 05:55] LABS: HEMATOCRIT 40.9 % (36.0-48.0); HEMOGLOBIN 13.6 g/dL (12.0-16.0); MEAN CORPUS HGB CONC 33.3 g/dL (32.0-36.0); MEAN CORPUSCULAR HEMOGLOB 32.2 pg (26.0-34.0); MEAN CORPUSCULAR VOLUME 96.7 fL (80-100); MEAN PLATELET VOLUME 10.8 fL (9.2-13.0); PLATELET COUNT 211 10/3/uL (150-400); RBC DISTRIBUTION WIDTH 14.2 % (12.0-16.0); RED CELL COUNT 4.23 10/6/uL (4.0-5.6)
[2016-11-20 05:56] LABS: MANUAL DIFF YES %; WHITE BLOOD CELLS 29.8 10/3/uL (4.5-10.5)
[2016-11-20 06:20] LABS: BAND NEUTROPHILS 7 %; LYMPHOCYTES 7 %; LYMPHOCYTES ABSOLUTE (CALC) 2.09 10/3/uL (0.67-4.30); MONOCYTES 3 %; MONOCYTES ABSOLUTE (CALC) 0.89 10/3/uL (0.21-1.20); NEUTROPHILS ABSOLUTE (CALC) 26.82 10/3/uL (2.02-8.40); PLATELET ESTIMATE ADQ (ADEQUATE); RBC MORPHOLOGY NORM (NORMAL); SEGMENTED NEUTROPHIL (0) 83 %; TOTAL NUCLEATED CELLS 100; TOXIC GRANULATION 1+
[2016-11-20 06:21] LABS: A/G RATIO 0.8 (0.7-1.9); ALBUMIN 2.4 G/DL (3.5-5.0); ALKALINE PHOSPHATASE 84 U/L (45-117); BUN (BLOOD UREA NITROGEN) 27 MG/DL (6-23); CALCIUM, SERUM 8.8 MG/DL (8.5-10.4); CHLORIDE, SERUM 121 MMOL/L (96-112); CO2 (CARBON DIOXIDE) 24 MMOL/L (24-34); CREATININE 0.94 MG/DL (0.55-1.02); GFR AFRICAN AMERICAN 62 ML/MIN (>=60); GFR NON AFRICAN AMERICAN 54 ML/MIN (>=60); GLUCOSE, SERUM 145 MG/DL (60-99); PHOSPHORUS, SERUM 3.3 MG/DL (2.5-4.5); POTASSIUM, SERUM 3.9 MMOL/L (3.5-5.3); SGOT(AST) 73 U/L (5-40); SGPT(ALT) 94 U/L (5-65); SODIUM, SERUM 150 MMOL/L (135-148); TOTAL BILIRUBIN 0.4 MG/DL (0-1.2); TOTAL PROTEIN 5.4 G/DL (6.0-8.5)
[2016-11-20 15:28] LABS: TOTAL PROTEIN, CSF 90.8 MG/DL (15-45)
[2016-11-20 15:54] LABS: CSF BASO 0 % (NO REF RANGE); CSF EOS 0 % (0-1); CSF LYMPH (NOT ORD) 43 % (28-96); CSF MONO 57 % (16-56); CSF SEGS (NOT ORD) 0 % (0-7)
[2016-11-20 15:59] LABS: CSF WBC (NOT ORD) 9 /uL (0-10)
[2016-11-20 16:00] LABS: CSF APPEARANCE (NOT ORD) CLEAR (CLEAR); CSF COLOR (NOT ORD) COLORLESS (COLORLESS); CSF RBC (NOT ORD) 11 MM3 (NO REFERENCE); CSF XANTHROCHROMIA NEG (NEG)
[2016-11-21 04:45] LABS: BASOPHILS 0 %; BASOPHILS ABSOLUTE 0.01 10/3/uL (0.0-0.16); EOSINOPHILS 0.5 %; HEMATOCRIT 38.6 % (36.0-48.0); HEMOGLOBIN 12.6 g/dL (12.0-16.0); IMMATURE GRANULOCYTES 0.5 %; IMMATURE GRANULOCYTES ABSOLUTE 0.11 10/3/uL (0.0-0.11); LYMPHOCYTES 7.5 %; LYMPHOCYTES ABSOLUTE 1.51 10/3/uL (0.67-4.30); MEAN CORPUS HGB CONC 32.6 g/dL (32.0-36.0); MEAN CORPUSCULAR HEMOGLOB 31.8 pg (26.0-34.0); MEAN CORPUSCULAR VOLUME 97.5 fL (80-100); MEAN PLATELET VOLUME 10.5 fL (9.2-13.0); MONOCYTES 7.8 %; MONOCYTES ABSOLUTE 1.57 10/3/uL (0.21-1.20); NEUTROPHILS 83.7 %; NEUTROPHILS ABSOLUTE 16.83 10/3/uL (2.02-8.40); PLATELET COUNT 153 10/3/uL (150-400); RED CELL COUNT 3.96 10/6/uL (4.0-5.6); WHITE BLOOD CELLS 20.1 10/3/uL (4.5-10.5)
[2016-11-21 04:47] LABS: MANUAL DIFF NO %
[2016-11-21 05:07] LABS: A/G RATIO 0.7 (0.7-1.9); ALKALINE PHOSPHATASE 77 U/L (45-117); CHLORIDE, SERUM 115 MMOL/L (96-112); CO2 (CARBON DIOXIDE) 22 MMOL/L (24-34); CREATININE 0.84 MG/DL (0.55-1.02); GFR AFRICAN AMERICAN 71 ML/MIN (>=60); GFR NON AFRICAN AMERICAN 62 ML/MIN (>=60); GLOBULIN 2.7 G/DL (2.5-4.1); SGPT(ALT) 66 U/L (5-65); TOTAL BILIRUBIN 0.5 MG/DL (0-1.2); TOTAL PROTEIN 4.7 G/DL (6.0-8.5)
[2016-11-21 05:09] LABS: SODIUM, SERUM 143 MMOL/L (135-148)
[2016-11-21 05:10] LABS: BUN (BLOOD UREA NITROGEN) 13 MG/DL (6-23); GLUCOSE, SERUM 189 MG/DL (60-99); POTASSIUM, SERUM 2.9 MMOL/L (3.5-5.3); SGOT(AST) 40 U/L (5-40)
[2016-11-21 20:10] LABS: B NATRIURETIC PEPTIDE (BNP) 437.2 PG/ML (< 100.0)
[2016-11-22 06:01] LABS: BASOPHILS 0.1 %; BASOPHILS ABSOLUTE 0.03 10/3/uL (0.0-0.16); EOSINOPHILS 0.8 %; EOSINOPHILS ABSOLUTE 0.18 10/3/uL (0.0-0.53); HEMOGLOBIN 11.5 g/dL (12.0-16.0); IMMATURE GRANULOCYTES 0.9 %; LYMPHOCYTES 10.3 %; LYMPHOCYTES ABSOLUTE 2.38 10/3/uL (0.67-4.30); MEAN CORPUS HGB CONC 33.8 g/dL (32.0-36.0); MEAN CORPUSCULAR HEMOGLOB 31.6 pg (26.0-34.0); MONOCYTES 8.6 %; MONOCYTES ABSOLUTE 1.99 10/3/uL (0.21-1.20); NEUTROPHILS 79.3 %; NEUTROPHILS ABSOLUTE 18.29 10/3/uL (2.02-8.40); PLATELET COUNT 144 10/3/uL (150-400); RBC DISTRIBUTION WIDTH 13.7 % (12.0-16.0); RED CELL COUNT 3.64 10/6/uL (4.0-5.6); WHITE BLOOD CELLS 23.1 10/3/uL (4.5-10.5)
[2016-11-22 06:04] LABS: MANUAL DIFF NO %; MEAN CORPUSCULAR VOLUME 93.4 fL (80-100)
[2016-11-22 06:56] LABS: PLATELET ESTIMATE SLT DEC (ADEQUATE); RBC MORPHOLOGY NORM (NORMAL)
[2016-11-22 10:11] LABS: ALBUMIN 1.8 G/DL (3.5-5.0); BUN (BLOOD UREA NITROGEN) 10 MG/DL (6-23); CALCIUM, SERUM 8.2 MG/DL (8.5-10.4); CHLORIDE, SERUM 112 MMOL/L (96-112); CO2 (CARBON DIOXIDE) 22 MMOL/L (24-34); CREATININE 0.83 MG/DL (0.55-1.02); GFR AFRICAN AMERICAN 72 ML/MIN (>=60); GFR NON AFRICAN AMERICAN 63 ML/MIN (>=60); POTASSIUM, SERUM 3.9 MMOL/L (3.5-5.3); SODIUM, SERUM 141 MMOL/L (135-148)
[2016-11-22 10:16] LABS: GLUCOSE, SERUM 110 MG/DL (60-99); PHOSPHORUS, SERUM 1.3 MG/DL (2.5-4.5)
[2016-11-22 10:29] LABS: VANCOMYCIN TROUGH 10.2 MCG/ML (10.0-20.0)
[2016-11-23 08:18] LABS: BASOPHILS 0.1 %; BASOPHILS ABSOLUTE 0.02 10/3/uL (0.0-0.16); EOSINOPHILS 1.3 %; EOSINOPHILS ABSOLUTE 0.29 10/3/uL (0.0-0.53); HEMATOCRIT 33.3 % (36.0-48.0); HEMOGLOBIN 11.4 g/dL (12.0-16.0); IMMATURE GRANULOCYTES ABSOLUTE 0.21 10/3/uL (0.0-0.11); LYMPHOCYTES 7.3 %; MEAN CORPUS HGB CONC 34.2 g/dL (32.0-36.0); MEAN CORPUSCULAR HEMOGLOB 31.7 pg (26.0-34.0); MEAN CORPUSCULAR VOLUME 92.5 fL (80-100); MEAN PLATELET VOLUME 10.9 fL (9.2-13.0); MONOCYTES 7.7 %; MONOCYTES ABSOLUTE 1.67 10/3/uL (0.21-1.20); NEUTROPHILS 82.6 %; NEUTROPHILS ABSOLUTE 18.02 10/3/uL (2.02-8.40); PLATELET COUNT 186 10/3/uL (150-400); WHITE BLOOD CELLS 21.8 10/3/uL (4.5-10.5)
[2016-11-23 08:23] LABS: MANUAL DIFF NO %
[2016-11-23 08:42] LABS: ALBUMIN 1.7 G/DL (3.5-5.0); BUN (BLOOD UREA NITROGEN) 13 MG/DL (6-23); CALCIUM, SERUM 8.3 MG/DL (8.5-10.4); CHLORIDE, SERUM 113 MMOL/L (96-112); CO2 (CARBON DIOXIDE) 21 MMOL/L (24-34); CREATININE 0.81 MG/DL (0.55-1.02); GFR AFRICAN AMERICAN 75 ML/MIN (>=60); GFR NON AFRICAN AMERICAN 64 ML/MIN (>=60); POTASSIUM, SERUM 3.5 MMOL/L (3.5-5.3); SODIUM, SERUM 143 MMOL/L (135-148)
[2016-11-23 08:44] LABS: GLUCOSE, SERUM 184 MG/DL (60-99); PHOSPHORUS, SERUM 2.1 MG/DL (2.5-4.5)
[2016-11-23 13:46] LABS: HSV DNA TYPE 1 Not Detected (NOTDET); HSV DNA TYPE 2 Not Detected (NOTDET)
[2016-11-24 06:50] LABS: BASOPHILS 0.1 %; BASOPHILS ABSOLUTE 0.02 10/3/uL (0.0-0.16); EOSINOPHILS 1.6 %; EOSINOPHILS ABSOLUTE 0.34 10/3/uL (0.0-0.53); HEMATOCRIT 30.2 % (36.0-48.0); HEMOGLOBIN 10.4 g/dL (12.0-16.0); IMMATURE GRANULOCYTES 0.5 %; IMMATURE GRANULOCYTES ABSOLUTE 0.11 10/3/uL (0.0-0.11); LYMPHOCYTES 7.5 %; LYMPHOCYTES ABSOLUTE 1.58 10/3/uL (0.67-4.30); MEAN CORPUS HGB CONC 34.4 g/dL (32.0-36.0); MEAN CORPUSCULAR HEMOGLOB 31.5 pg (26.0-34.0); MEAN CORPUSCULAR VOLUME 91.5 fL (80-100); MEAN PLATELET VOLUME 10.3 fL (9.2-13.0); MONOCYTES 7.3 %; MONOCYTES ABSOLUTE 1.54 10/3/uL (0.21-1.20); NEUTROPHILS ABSOLUTE 17.41 10/3/uL (2.02-8.40); PLATELET COUNT 241 10/3/uL (150-400); RBC DISTRIBUTION WIDTH 14.2 % (12.0-16.0)
[2016-11-24 06:51] LABS: MANUAL DIFF NO %
[2016-11-24 07:07] LABS: ALBUMIN 1.6 G/DL (3.5-5.0); BUN (BLOOD UREA NITROGEN) 11 MG/DL (6-23); CALCIUM, SERUM 8.3 MG/DL (8.5-10.4); CHLORIDE, SERUM 113 MMOL/L (96-112); CO2 (CARBON DIOXIDE) 22 MMOL/L (24-34); CREATININE 0.72 MG/DL (0.55-1.02); GFR AFRICAN AMERICAN 86 ML/MIN (>=60); GFR NON AFRICAN AMERICAN 74 ML/MIN (>=60); PHOSPHORUS, SERUM 1.6 MG/DL (2.5-4.5); POTASSIUM, SERUM 3.2 MMOL/L (3.5-5.3); SODIUM, SERUM 145 MMOL/L (135-148)
[2016-11-24 07:08] LABS: GLUCOSE, SERUM 122 MG/DL (60-99)
[2016-11-25 05:05] LABS: A/G RATIO 0.5 (0.7-1.9); ALBUMIN 1.7 G/DL (3.5-5.0); ALKALINE PHOSPHATASE 76 U/L (45-117); BUN (BLOOD UREA NITROGEN) 13 MG/DL (6-23); CALCIUM, SERUM 8.8 MG/DL (8.5-10.4); CHLORIDE, SERUM 113 MMOL/L (96-112); CO2 (CARBON DIOXIDE) 21 MMOL/L (24-34); CREATININE 0.84 MG/DL (0.55-1.02); GFR AFRICAN AMERICAN 71 ML/MIN (>=60); GFR NON AFRICAN AMERICAN 62 ML/MIN (>=60); GLOBULIN 3.3 G/DL (2.5-4.1); GLUCOSE, SERUM 118 MG/DL (60-99); POTASSIUM, SERUM 3.6 MMOL/L (3.5-5.3); SGOT(AST) 14 U/L (5-40); SGPT(ALT) 23 U/L (5-65); SODIUM, SERUM 142 MMOL/L (135-148); TOTAL BILIRUBIN 0.4 MG/DL (0-1.2)
[2016-11-25 06:02] LABS: BASOPHILS 0.3 %; BASOPHILS ABSOLUTE 0.06 10/3/uL (0.0-0.16); EOSINOPHILS 1.8 %; EOSINOPHILS ABSOLUTE 0.35 10/3/uL (0.0-0.53); HEMOGLOBIN 11.4 g/dL (12.0-16.0); IMMATURE GRANULOCYTES 1.3 %; IMMATURE GRANULOCYTES ABSOLUTE 0.25 10/3/uL (0.0-0.11); LYMPHOCYTES 9.7 %; LYMPHOCYTES ABSOLUTE 1.91 10/3/uL (0.67-4.30); MEAN CORPUS HGB CONC 33.6 g/dL (32.0-36.0); MEAN CORPUSCULAR HEMOGLOB 32.1 pg (26.0-34.0); MEAN PLATELET VOLUME 10.4 fL (9.2-13.0); MONOCYTES 9.6 %; MONOCYTES ABSOLUTE 1.89 10/3/uL (0.21-1.20); NEUTROPHILS 77.3 %; NEUTROPHILS ABSOLUTE 15.33 10/3/uL (2.02-8.40); RBC DISTRIBUTION WIDTH 14.5 % (12.0-16.0); RED CELL COUNT 3.55 10/6/uL (4.0-5.6); WHITE BLOOD CELLS 19.8 10/3/uL (4.5-10.5)
[2016-11-25 06:05] LABS: HEMATOCRIT 33.9 % (36.0-48.0); MEAN CORPUSCULAR VOLUME 95.5 fL (80-100)
[2016-11-25 06:06] LABS: MANUAL DIFF NO %
[2016-11-25 06:22] LABS: ASCORBIC ACID (UR NOT ORDER) NEG (NEG); BILIRUBIN, URINE NEGATIVE (NEG); KETONE, URINE 20 MG/DL (NEG); LEUKOCYTE ESTERASE(NOT OR LARGE (NEG); WBC (NOT ORDERED) (RFLEX) > 182 (0-5)
[2016-11-25 07:29] LABS: POLYCHROMASIA 1+ (2-5/OIF) (0-1/OIF)
[2016-11-25 07:30] LABS: PLATELET ESTIMATE ADQ (ADEQUATE)
[2016-11-25 07:31] LABS: PLATELET COUNT 317 10/3/uL (150-400)
[2016-11-26 09:21] LABS: SMEAR FOR ABNORMAL CELLS SEE PATHOLOGY REPORT
[2016-11-27 05:11] LABS: BASOPHILS 0.2 %; BASOPHILS ABSOLUTE 0.03 10/3/uL (0.0-0.16); EOSINOPHILS 2.1 %; EOSINOPHILS ABSOLUTE 0.28 10/3/uL (0.0-0.53); HEMATOCRIT 30.9 % (36.0-48.0); HEMOGLOBIN 10.4 g/dL (12.0-16.0); IMMATURE GRANULOCYTES 0.5 %; IMMATURE GRANULOCYTES ABSOLUTE 0.07 10/3/uL (0.0-0.11); LYMPHOCYTES 14.5 %; LYMPHOCYTES ABSOLUTE 1.97 10/3/uL (0.67-4.30); MEAN CORPUS HGB CONC 33.7 g/dL (32.0-36.0); MEAN CORPUSCULAR HEMOGLOB 31.4 pg (26.0-34.0); MEAN CORPUSCULAR VOLUME 93.4 fL (80-100); MEAN PLATELET VOLUME 9.7 fL (9.2-13.0); MONOCYTES 10.6 %; MONOCYTES ABSOLUTE 1.44 10/3/uL (0.21-1.20); NEUTROPHILS 72.1 %; NEUTROPHILS ABSOLUTE 9.84 10/3/uL (2.02-8.40); RBC DISTRIBUTION WIDTH 14.7 % (12.0-16.0); RED CELL COUNT 3.31 10/6/uL (4.0-5.6); WHITE BLOOD CELLS 13.6 10/3/uL (4.5-10.5)
[2016-11-27 05:15] LABS: MANUAL DIFF NO %; PLATELET COUNT 419 10/3/uL (150-400)
[2016-11-27 05:18] LABS: BUN (BLOOD UREA NITROGEN) 15 MG/DL (6-23); CHLORIDE, SERUM 107 MMOL/L (96-112); CO2 (CARBON DIOXIDE) 23 MMOL/L (24-34); CREATININE 0.77 MG/DL (0.55-1.02); GFR AFRICAN AMERICAN 79 ML/MIN (>=60); GFR NON AFRICAN AMERICAN 68 ML/MIN (>=60); GLUCOSE, SERUM 183 MG/DL (60-99); POTASSIUM, SERUM 3.6 MMOL/L (3.5-5.3); SODIUM, SERUM 138 MMOL/L (135-148)
[2016-11-28 07:18] LABS: BASOPHILS 0.4 %; BASOPHILS ABSOLUTE 0.06 10/3/uL (0.0-0.16); EOSINOPHILS 0.9 %; EOSINOPHILS ABSOLUTE 0.14 10/3/uL (0.0-0.53); IMMATURE GRANULOCYTES 0.7 %; IMMATURE GRANULOCYTES ABSOLUTE 0.12 10/3/uL (0.0-0.11); LYMPHOCYTES 8.5 %; LYMPHOCYTES ABSOLUTE 1.38 10/3/uL (0.67-4.30); MEAN CORPUS HGB CONC 33.1 g/dL (32.0-36.0); MEAN CORPUSCULAR HEMOGLOB 31.3 pg (26.0-34.0); MEAN CORPUSCULAR VOLUME 94.7 fL (80-100); MEAN PLATELET VOLUME 10.4 fL (9.2-13.0); MONOCYTES 8.9 %; MONOCYTES ABSOLUTE 1.45 10/3/uL (0.21-1.20); NEUTROPHILS 80.6 %; NEUTROPHILS ABSOLUTE 13.16 10/3/uL (2.02-8.40); PLATELET COUNT 470 10/3/uL (150-400); WHITE BLOOD CELLS 16.3 10/3/uL (4.5-10.5)
[2016-11-28 07:19] LABS: HEMATOCRIT 37.8 % (36.0-48.0); HEMOGLOBIN 12.5 g/dL (12.0-16.0); MANUAL DIFF NO %; RED CELL COUNT 3.99 10/6/uL (4.0-5.6)
[2016-11-28 10:38] LABS: BUN (BLOOD UREA NITROGEN) 17 MG/DL (6-23); CALCIUM, SERUM 9.3 MG/DL (8.5-10.4); CHLORIDE, SERUM 105 MMOL/L (96-112); CO2 (CARBON DIOXIDE) 27 MMOL/L (24-34); CREATININE 0.91 MG/DL (0.55-1.02); GFR AFRICAN AMERICAN 65 ML/MIN (>=60); GFR NON AFRICAN AMERICAN 56 ML/MIN (>=60); GLUCOSE, SERUM 242 MG/DL (60-99); POTASSIUM, SERUM 4.4 MMOL/L (3.5-5.3); SODIUM, SERUM 137 MMOL/L (135-148)
[2016-11-29 07:24] LABS: BASOPHILS 0.2 %; BASOPHILS ABSOLUTE 0.03 10/3/uL (0.0-0.16); EOSINOPHILS ABSOLUTE 0.15 10/3/uL (0.0-0.53); HEMOGLOBIN 10.5 g/dL (12.0-16.0); IMMATURE GRANULOCYTES 0.7 %; LYMPHOCYTES 10.7 %; LYMPHOCYTES ABSOLUTE 1.63 10/3/uL (0.67-4.30); MEAN CORPUS HGB CONC 32.5 g/dL (32.0-36.0); MEAN CORPUSCULAR HEMOGLOB 31.3 pg (26.0-34.0); MEAN CORPUSCULAR VOLUME 96.1 fL (80-100); MEAN PLATELET VOLUME 9.1 fL (9.2-13.0); MONOCYTES 6.6 %; MONOCYTES ABSOLUTE 1.01 10/3/uL (0.21-1.20); NEUTROPHILS 80.8 %; NEUTROPHILS ABSOLUTE 12.38 10/3/uL (2.02-8.40); PLATELET COUNT 481 10/3/uL (150-400); RBC DISTRIBUTION WIDTH 15.2 % (12.0-16.0); RED CELL COUNT 3.36 10/6/uL (4.0-5.6); WHITE BLOOD CELLS 15.3 10/3/uL (4.5-10.5)
[2016-11-29 07:37] LABS: HEMATOCRIT 32.3 % (36.0-48.0); MANUAL DIFF NO %
[2016-11-30 05:54] LABS: BASOPHILS 0.3 %; BASOPHILS ABSOLUTE 0.04 10/3/uL (0.0-0.16); EOSINOPHILS 0.8 %; HEMATOCRIT 32.7 % (36.0-48.0); HEMOGLOBIN 10.5 g/dL (12.0-16.0); IMMATURE GRANULOCYTES 0.5 %; IMMATURE GRANULOCYTES ABSOLUTE 0.07 10/3/uL (0.0-0.11); LYMPHOCYTES 11.1 %; LYMPHOCYTES ABSOLUTE 1.46 10/3/uL (0.67-4.30); MEAN CORPUS HGB CONC 32.1 g/dL (32.0-36.0); MEAN CORPUSCULAR HEMOGLOB 31.1 pg (26.0-34.0); MEAN CORPUSCULAR VOLUME 96.7 fL (80-100); MONOCYTES 8.4 %; NEUTROPHILS 78.9 %; NEUTROPHILS ABSOLUTE 10.36 10/3/uL (2.02-8.40); PLATELET COUNT 498 10/3/uL (150-400); RED CELL COUNT 3.38 10/6/uL (4.0-5.6); WHITE BLOOD CELLS 13.1 10/3/uL (4.5-10.5)
[2016-11-30 05:59] LABS: BUN (BLOOD UREA NITROGEN) 18 MG/DL (6-23); CALCIUM, SERUM 9.9 MG/DL (8.5-10.4); CHLORIDE, SERUM 101 MMOL/L (96-112); CO2 (CARBON DIOXIDE) 31 MMOL/L (24-34); GFR AFRICAN AMERICAN 76 ML/MIN (>=60); GFR NON AFRICAN AMERICAN 65 ML/MIN (>=60); MANUAL DIFF NO %; POTASSIUM, SERUM 4.2 MMOL/L (3.5-5.3); SODIUM, SERUM 136 MMOL/L (135-148)
[2016-11-30 06:03] LABS: GLUCOSE, SERUM 139 MG/DL (60-99)
[2016-12-01 06:41] LABS: BUN (BLOOD UREA NITROGEN) 17 MG/DL (6-23); CALCIUM, SERUM 9.7 MG/DL (8.5-10.4); CHLORIDE, SERUM 100 MMOL/L (96-112); CO2 (CARBON DIOXIDE) 32 MMOL/L (24-34); CREATININE 0.71 MG/DL (0.55-1.02); GFR AFRICAN AMERICAN 88 ML/MIN (>=60); GFR NON AFRICAN AMERICAN 76 ML/MIN (>=60); GLUCOSE, SERUM 135 MG/DL (60-99); POTASSIUM, SERUM 4.8 MMOL/L (3.5-5.3); SODIUM, SERUM 138 MMOL/L (135-148)
[2016-12-01 06:54] LABS: BASOPHILS 0.3 %; BASOPHILS ABSOLUTE 0.04 10/3/uL (0.0-0.16); EOSINOPHILS ABSOLUTE 0.14 10/3/uL (0.0-0.53); HEMATOCRIT 34.8 % (36.0-48.0); HEMOGLOBIN 11.4 g/dL (12.0-16.0); IMMATURE GRANULOCYTES 0.4 %; IMMATURE GRANULOCYTES ABSOLUTE 0.06 10/3/uL (0.0-0.11); LYMPHOCYTES 9.7 %; LYMPHOCYTES ABSOLUTE 1.43 10/3/uL (0.67-4.30); MEAN CORPUS HGB CONC 32.8 g/dL (32.0-36.0); MEAN CORPUSCULAR HEMOGLOB 31.8 pg (26.0-34.0); MEAN CORPUSCULAR VOLUME 97.2 fL (80-100); MEAN PLATELET VOLUME 9.2 fL (9.2-13.0); MONOCYTES 9.2 %; MONOCYTES ABSOLUTE 1.35 10/3/uL (0.21-1.20); NEUTROPHILS 79.4 %; NEUTROPHILS ABSOLUTE 11.65 10/3/uL (2.02-8.40); PLATELET COUNT 529 10/3/uL (150-400); RED CELL COUNT 3.58 10/6/uL (4.0-5.6); WHITE BLOOD CELLS 14.7 10/3/uL (4.5-10.5)
[2016-12-01 06:55] LABS: MANUAL DIFF NO %
[2016-12-02 05:42] LABS: HEMATOCRIT 33.5 % (36.0-48.0); MEAN CORPUS HGB CONC 32.8 g/dL (32.0-36.0); MEAN CORPUSCULAR HEMOGLOB 32.2 pg (26.0-34.0); MEAN PLATELET VOLUME 8.9 fL (9.2-13.0); PLATELET COUNT 509 10/3/uL (150-400); RED CELL COUNT 3.42 10/6/uL (4.0-5.6); WHITE BLOOD CELLS 12.8 10/3/uL (4.5-10.5)
[2016-12-02 05:45] LABS: MANUAL DIFF YES %
[2016-12-02 05:58] LABS: BUN (BLOOD UREA NITROGEN) 19 MG/DL (6-23); CALCIUM, SERUM 10.3 MG/DL (8.5-10.4); CHLORIDE, SERUM 96 MMOL/L (96-112); CO2 (CARBON DIOXIDE) 36 MMOL/L (24-34); CREATININE 0.84 MG/DL (0.55-1.02); GFR AFRICAN AMERICAN 71 ML/MIN (>=60); GFR NON AFRICAN AMERICAN 62 ML/MIN (>=60); GLUCOSE, SERUM 135 MG/DL (60-99); POTASSIUM, SERUM 4.1 MMOL/L (3.5-5.3); SODIUM, SERUM 136 MMOL/L (135-148)
[2016-12-02 07:27] LABS: HYPOCHROMIA 1+ (3-10/OIF) (0-2/OIF); LYMPHOCYTES 18 %; MONOCYTES 8 %; MONOCYTES ABSOLUTE (CALC) 1.02 10/3/uL (0.21-1.20); NEUTROPHILS ABSOLUTE (CALC) 9.47 10/3/uL (2.02-8.40); PLATELET ESTIMATE INC (ADEQUATE); SEGMENTED NEUTROPHIL (0) 74 %; TOTAL NUCLEATED CELLS 100
== END 2016-12-02 18:45 | disposition hospice, inpatient (51) | DRG 64 ==
LOC: 7NO 23:20
PROVIDERS: Hospitalist; Internal Medicine Infectious Disease; Internal Medicine Pulmonary Disease; Nurse Practitioner Family
PROC: 009U3ZX Drainage of Spinal Canal, Percutaneous Approach, Diagnostic (ICD-10-PCS; principal; 2016-11-20)
PROC: B01B1ZZ Fluoroscopy of Spinal Cord using Low Osmolar Contrast (ICD-10-PCS; 2016-11-20)
PROC: 02HV33Z Insertion of Infusion Device into Superior Vena Cava, Percutaneous Approach (ICD-10-PCS; 2016-11-20)
PROC: 4A02X4A Measurement of Cardiac Electrical Activity, Guidance, External Approach (ICD-10-PCS; 2016-11-20)
DX: I63.443 Cerebral infarction due to embolism of bilateral cerebellar arteries (principal); A41.9 Sepsis, unspecified organism; G93.41 Metabolic encephalopathy; E87.0 Hyperosmolality and hypernatremia; I48.92 Unspecified atrial flutter; E11.65 Type 2 diabetes mellitus with hyperglycemia; I48.91 Unspecified atrial fibrillation; I11.9 Hypertensive heart disease without heart failure; F03.90 Unspecified dementia, unspecified severity, without behavioral disturbance, psychotic disturbance, mood disturbance, and anxiety; E86.0 Dehydration; R13.10 Dysphagia, unspecified; N39.0 Urinary tract infection, site not specified; R09.02 Hypoxemia; Z51.5 Encounter for palliative care; Z66 Do not resuscitate; E11.9 Type 2 diabetes mellitus without complications; E87.6 Hypokalemia; N20.0 Calculus of kidney; Z90.49 Acquired absence of other specified parts of digestive tract; Z90.710 Acquired absence of both cervix and uterus; Z87.440 Personal history of urinary (tract) infections
CPT/HCPCS: 36569; 36569-52; 36591; 62270; 70450; 70551; 71010; 71250; 74000; 74176; 76775; 77003; 80048; 80053; 80069; 80202; 81001; 82140; 82945; 82962; 83605; 83735; 83880; 84100; 84132; 84145; 84157; 84439; 84443; 84484; 85025; 86592; 87040; 87070; 87086; 87102; 87205; 87210; 87327; 87449; 87529; 87529-59; 87804; 88112; 89051; 92610-GN; 93005; 93306; 94640; 95816; 95819; 97161-GP; A9270-GY; C1751; C1894; C9113; G8978-CM-GP; G8979-CM-GP; G8980-CM-GP; G8996-CM-GN; G8997-CM-GN; G8998-CM-GN; J0133; J0692; J3370; J3475